=== PATIENT | female | born 1975 | race Caucasian/White ===

== ENCOUNTER 2023-12-29 16:00 | Emergency (ER) | payer OTHER, SELFPAY ==
[2023-12-29 16:16] VITALS: BP 126/82; PULSE 72; RESP 17; TEMP 36.6; O2SAT 100
[2023-12-29 16:25] VITALS: BP 126/82; PULSE 72; RESP 17; TEMP 36.6; O2SAT 100
--- NOTE | 2023-12-29 16:57 | ED.URI ---
HPI - URI/Sore Throat General Chief Complaint: Upper Respiratory Infection Stated Complaint: chest pain/sob Time Seen by Provider: 12/29/23 16:30 Source: patient, RN notes reviewed and old records reviewed Mode of arrival: ambulatory Limitations: no limitations History of Present Illness HPI Narrative: 48 year old female presents to [facility] care with complaints of one month duration of not feeling well. Patient reports that she has intermittent feelings of dyspnea, has thick phlegm in back of throat, and upper chest tickles. Patient does also report some diarrhea episodes but they have resolved. Patient reports no known fevers, chills or sweats or body aches. Patient does have history of asthma and has been using inhaler as needed, no retractions noted SAO2 100% on room air no tachypnea noted. Patient reports that she has been taking Bárbara, and Nasacort for her sinus congestion and drainage, and has also used Vicks vapo rub along with her inhaler for cough/dyspnea MD elicited complaint: cough, rhinorrhea, nasal congestion and other (intermittent dyspnea) Pertinent past history: asthma Onset (ago): month(s) (1) Pain scale (0-10): 5 Description of mucous: other (white thick phlegm) Able to tolerate fluids by mouth: Yes Treatments prior to arrival: other (inhaler,vicks vapor rub,Bárbara and nasocort) Related Data Home Medications Medication Instructions Recorded Confirmed Hydrocodone 12/29/23 Xanax 12/29/23 albuterol 12/29/23 celecoxib 200 mg capsule mg 12/29/23 lamotrigine 12/29/23 Allergies Allergy/AdvReac Type Severity Reaction Status Date / Time No Known Allergies Allergy Verified 12/29/23 16:17 Review of Systems Review of Systems: CONSTITUTIONAL: Reports malaise, no chills, sweats, or fever. EYES: Denies visual changes, redness, or discharge. ENT: Reports rhinorrhea, congestion, sinus pain, no otalgia and no sore throat. CARDIOVASCULAR: Denies chest pain, palpitations, or edema. RESPIRATORY: Reports cough.? intermittent dyspnea reported GASTROINTESTINAL: Denies abdominal pain, nausea, vomiting,positive for episodes of diarrhea that have resolved SKIN: Denies rash or itching. MUSCULOSKELETAL: Denies myalgia. NEUROLOGIC: Denies headache. All systems reviewed & are unremarkable except as noted in HPI and below PMFSH Past Medical History Medical History (Updated 12/30/23 @ 21:21 by Angy Jain NP) Anxiety and depression Asthma Bladder pain syndrome Social History Social History (Updated 12/30/23 @ 21:20 by Angy Jain NP) Smoking status: Never smoker Alcohol intake: current Alcohol use details: rare Substance use type: does not use Living arrangements: with family Gender identity (if verbalized by the patient): Female Comments At time of signature, agree with nursing past medical, surgical, social and family history. There is no relevant family history pertinent to the presenting complaint Exam Narrative: GENERAL: Well-appearing, well-nourished, and in no acute distress. HEAD: Normocephalic EYES: PERRLA, conjunctivae clear ENT: Nares clear, turbinates edematous and erythematous, clear discharge, sinus pressure.. Mucous membranes moist. TM pearly winn with dull light reflex bilaterally; no tragal tenderness. Oropharynx erythematous without lesions. Tonsils not enlarged and without exudate, no drooling, no hoarseness, no trismus, uvula midline. NECK: Supple. No lymphadenopathy CHEST: Clear to auscultation, breath sounds equal. No wheezing, rhonchi, rales, or stridor. No respiratory distress, speaks in full sentences.cough thick white phlegm, SAO2 100% on room air, no tachypnea or retractions HEART: Regular rate and rhythm. No murmur heard. SKIN: Warm, dry, no rash. NEURO: Alert and oriented x3. PSYCH: Normal mood and affect Course Course Emergency Course: Patient is aware of diagnosis, understands and agrees to treatment fabiola
== END 2023-12-29 17:13 | disposition home or self-care (01) ==
PROVIDERS: Emergency Provider Registered Nurse; PCP Emergency Medicine
DX: J01.40 Acute pansinusitis, unspecified (principal); R05.1 Acute cough; J45.909 Unspecified asthma, uncomplicated
CPT/HCPCS: 99203; G0463

== ENCOUNTER → 2024-07-16 16:48 | Outpatient (REF) | payer OTHER, SELFPAY ==
--- OUTSIDE RECORDS SUMMARY | 2024-07-16 17:59 | XMS_ITS | Clinical Summary ---
Author Organization [facility] Address [address] [address] Phone Care Team Providers Care Elementary Assistant Principal Name Role Phone Sanket Imtiaz Primary Care Provider Alan Moody DO Unavailable [phone] Allergies Active Allergy Reactions Criticality Noted Date Comments Aspirin Unknown 08/09/2016 Medications Multiple Vitamin (MULTI-VITAMIN PO) Take by mouth. Active HYDROcodone-acet aminophen (NORCO) 5-325 MG Tablet as needed. 0 10/20/2016 Active phenazopyridine (PYRIDIUM) 100 MG Tablet as needed. 0 11/25/2016 Active Sertraline HCl (ZOLOFT PO)Indications:B 12 deficiency Take 50 mg by mouth. Active ALPRAZolam (XANAX PO)Indications:B 12 deficiency Take 1 mg by mouth Daily as needed. Active lamoTRIgine (LAMICTAL) 50 MG Tablet Take by mouth 2 times daily. Active simvastatin (ZOCOR) 20 MG Tablet Take 20 mg by mouth daily. Active Cyanocobalamin (B-12) 1000 MCG Capsule Take 1,000 mcg by mouth daily. 90 Cap 3 12/22/2018 Active Active Problems Problem Noted Date Diagnosed Date Dyspnea on exertion 03/06/2018 B12 deficiency 11/16/2016 Family History Medical History Relation Name Comments Cancer Maternal Aunt Cancer Maternal Grandmother Cancer Mother Cancer Paternal Grandmother Relation Name Status Comments Maternal Aunt Maternal Grandmother Mother Paternal Grandmother Social History Tobacco Use Types Packs/Day Years Used Date Smoking Tobacco: Former Cigarettes 0.1 10 0 10/26/2006 - 10/26/2016 Smokeless Tobacco: Never Alcohol Use Standard Drinks/Week Comments Yes 0 (1 standard drink = 0.6 oz pur e alcohol) 2x monthly PHQ-2 Answer Date Recorded PHQ-2 Score 0 12/08/2018 Comments No Sex and Gender Information Value Date Recorded Sex Assigned at Not on file Legal Sex Female 8:54 PM CDT Gender Identity Not on file Sexual Orientation Not on file Last Filed Vital Signs Vital Sign Reading Time Taken Comments Blood Pressure 122/80 12/22/2018 11:34 AM CDT Pulse 90 12/22/2018 11:34 AM CDT Temperature 36.6 C (97.8 F) 12/22/2018 11:34 AM CDT Respiratory Rate 14 12/22/2018 11:34 AM CDT Oxygen Saturation 98% 12/22/2018 11:34 AM CDT Inhaled Oxygen Concentration - - Weight 79.1 kg (174 lb 6.4 oz) 12/22/2018 11:34 AM CDT Height 165.1 cm (5' 5 ) 12/22/2018 11:34 AM CDT Body Mass Index 29.02 12/22/2018 11:34 AM CDT Plan of Treatment Health Maintenance Due Date Last Done Comments Hepatitis C Virus (HCV) Screening 1973 TdaP Immunization 1973 Hepatitis B Immunization (1 of 3 - 19+ 3-dose series) 01/21/1992 Pap Smear 1994 Cervical Cancer Screening (CCS) 2003 HPV/Cotest 2003 Colonoscopy 2018 Colorectal Cancer Screening 06/02/2018 Cologuard 2023 Immunochemical Fecal Occult Blood 2023 06/01/2018, 03/17/2018 Pneumococcal Immunization (50+ years) (1 of 1 - PCV) 2023 Zoster Immunization (1 of 2) 2023 Influenza Immunization (#1) 2023 SARS-COV-2 Immunization (1 - season) 2023 Mammogram 11/18/2024 11/19/2023, 11/2022, 05/01/2020, Additional history exists Respiratory Syncytial Virus (RSV) Immunization (Adult) (1 - 1-dose 75+ series) 01/21/2048 Discussion re Starting/Frequency of Mammograms Discontinued 11/19/2023, 05/06/2022, 05/01/2020, Additional history exists Meningococcal Immunization (ACWY) Aged Out No longer eligible based on patient's age to complete this topic Rotavirus Immunization Aged Out No lo nger eligible based on patient's age to complete this topic Procedures Procedure Name Priority Date/Time Associated Diagnosis Comments STOOL, OCCULT BLOOD, SCREEN Routine 06/01/2018 B12 deficiency Dyspnea on exertion from Last 3 Months or Most Recently Relevant to Health Maintenance Results * STOOL, OCCULT BLOOD, SCREEN FOR CA (06/01/2018) Stool specimen (specimen) STOOL SPECIMEN / Unknown us Alan Moody DO URINE ORDERABLES Final Result [facility] [address] [place] [address], from Last 3 Months or Most Recently Relevant to Health Maintenance Insurance MEDICAID [place] [place] Care Teams Elementary Assistant Principal Relationship Specialty Start Date End Date Imtiaz Coles [address] [place] [address] PCP - General Family Medicine 08/09/16 Alan Moody DO [address] [place] [address] Consulting Physician Oncology 06/12/18
--- OUTSIDE RECORDS SUMMARY | 2024-07-16 17:59 | XMS_ITS | Clinical Summary ---
Author Organization [facility] Address [address] [place] [address] Care Team Providers Care Bulk Intake Worker Name Role Phone Imtiaz Coles MD Primary Care Provider [phone] Allergies Active Allergy Reactions Criticality Noted Date Comments Aspirin Other (See comments) Reaction: Unknown childhood, , , Reaction: UNKNOWN CHILDHOOD, Medications HYDROcodone-alex taminophen (NORCO) 5-325 mg per tabletIndicatio ns:Pain Take 1 tablet by mouth every 4 (four) hours as needed for pain 12 tablet 0 Active lamoTRIgine (LaMICtal) 100 mg tablet Take 25 mg by mouth 2 (two) times a day Active rosuvastatin (CRESTOR) 5 mg tablet Take 1 tablet (5 mg total) by mouth daily Active sertraline (ZOLOFT) 25 mg tablet Take 1 tablet (25 mg total) by mouth daily Active cyclobenzaprine (FLEXERIL) 10 mg tablet Take 1 tablet (10 mg total) by mouth 3 (three) times a day as needed for muscle spasms 12 tablet 1 Active Additional Information Patient not taking.Reported on 01/23/2024 Active Problems No known active problems Surgical History Surgery Date Site/Laterality Comments OTHER SURGICAL HISTORY Tubal ligation 2006 OTHER SURGICAL HISTORY 03/28/2011 - 03/27/2012 Bilateral carpal tunnel syndrome: Right carpal tunnel release Medical History Medical History Date Comments Hx Other Medical Bilateral carpa l tunnel syndrome Interstitial cystitis Family History Medical History Relation Name Comments Breast cancer Mother Cancer, breast ; Cause of : Cancer, breast Ovarian cancer Mother's Sister Hypertension Other 1 grandmother Hypertension; Cancer Other 3 Aunt Cancer; Arthritis Other 4 Grandmother Arthritis; Cancer Other 4 Grandmother Cancer; Relation Name Status Comments Mother (Age 53) Mother's Sister Other 1 grandmother Alive Other 2 Grandmother Alive Other 3 Aunt Alive Other 4 Grandmother Alive Social History Tobacco Use Types Packs/Day Years Used Date Smoking Tobacco: Former Alcohol Use Standard Drinks/Week Comments Not Currently 0 (1 standard drink = 0.6 oz pur e alcohol) Comments No Sex and Gender Information Value Date Recorded Sex Assigned at Not on file 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 Gender Identity Not on file Sexual Orientation Not on file Obstetrics History Para Term AB IAB SAB Ectopic Multiple Livin g Live Births 5 3 3 Date Outcome GA Total Labor Labor/2nd/3rd Weight Sex Type Anes PTL Linda A1 A5 Name Clin Term Term Term Last Filed Vital Signs Vital Sign Reading Time Taken Comments Blood Pressure 118/80 01/23/2024 5:00 PM CDT Pulse 89 01/23/2024 5:00 PM CDT Temperature 36.3 C (97.4 F) 01/23/2024 5:00 PM CDT Respiratory Rate 16 01/23/2024 5:00 PM CDT Oxygen Saturation 98% 01/23/2024 5:00 PM CDT Inhaled Oxygen Concentration - - Weight 85.3 kg (188 lb) 01/23/2024 5:00 PM CDT Height 165.1 cm (5' 5 ) 01/23/2024 5:00 PM CDT Body Mass Index 31.28 01/23/2024 5:00 PM CDT Plan of Treatment Health Maintenance Due Date Last Done Comments Cervical Cancer Screening 1973 Colon Cancer Screening-Colonoscopy 1973 Depression Screening 1973 Hepatitis C Screening 1973 DTaP/Tdap/Td Vaccine (1 - Tdap) 01/21/1984 Hepatitis B Screening 1991 Regular Well Visit/Exam 18-64 1991 Zoster Vaccine (1 of 2) 2023 Influenza Vaccine (#1) 2023 02/20/2014 Breast Cancer Screening-Mammogram 11/18/2024 11/19/2023, 05/06/2022, 05/01/2020, Additional history exists Pneumococcal vaccine <65 Aged Out No longer eligible based on patient's age to complete this topic Procedures Procedure Name Priority Date/Time Associated Diagnosis Comments SCREENING MAMMOGRAM BILATERAL W SURJIT Schedule Routine, Read Routine (OP Routine) 11/19/2023 9:15 AM CDT Screening mammogram, encounter for from Last 3 Months or Most Recently Relevant to Health Maintenance Results * Screening Mammogram Bilateral W Surjit (11/19/2023 9:15 AM CDT) Anatomical Region Laterality Modality Breast Bilateral Mammography 11/21/2023 8:09 AM CDT Impressions 11/21/2023 8:09 AM CDT There is no mammographic evidence of malignancy. A 1 year screening mammogram is recommended. BI-RADS: 1 - Negative. The patient has been or will be contacted. The patient will be entered into a reminder system with a target due date of 1 year for her next mammogram. Electronically signed by: Rosa Jo M.D. Narrative 11/21/2023 8:09 AM CDT EXAMINATION: SCREENING MAMMOGRAM BILATERAL W SURJIT ORDERING HEALTHCARE PROVIDER: SELF SCREENING MAMMOGRAM HISTORY: Routine screening mammography. COMPARISON: 05/06/2022, 05/01/2020, 07/03/2018 TECHNIQUE: CC and MLO views of the bilateral breasts were obtained with digital technique using breast tomosynthesis with C view. Computer aided detection was utilized. FINDINGS: DENSITY: There are scattered fibroglandular elements in the bilateral breasts. BREASTS: There are no suspicious masses, suspicious calcifications, or other suspicious findings in either breast. There has been no suspicious interval change. us Self Screening Mammogram IMG MAMMO PROCEDURES Fi nal Result from Last 3 Months or Most Recently Relevant to Health Maintenance Insurance [facility] IDPA [facility] [employer] Care Teams Bulk Intake Worker Relationship Specialty Start Date End Date Imtiaz Coles MD PCP - General 01/08/10
--- OUTSIDE RECORDS SUMMARY | 2024-07-16 17:59 | XMS_ITS | Continuity of Care Document ---
Author Organization [facility] Address [address] [place] [address] [place] [address] Phone Care Team Providers Care [employer] Worker Name Role Phone Imtiaz Coles MD Unavailable Unavailable Allergies, Adverse Reactions, Alerts Substance Reaction Status Criticality No Known Allergies Active No Inform ation Medications Medication Instructions Dosage Effective Dates (start - stop) Status Comments hydrocodone 7.5 mg-acetaminophen 325 mg tablet take 1 tablet by oral route 2 times every day as needed for pain as needed 1 tablet - Active PRN for pain, avoid driving or operate machines Xanax 0.5 mg tablet take 1 tablet by oral route 2 times every day as needed 0.5 MG - Active PRN for anxiety, avoid driving or operate machines Zetia 10 mg tablet take 1 tablet by oral route every day 10 MG - Active naloxone 0.4 mg/mL injection solution inject 0.4 milliliter by intravenous route over once, may repeat at 2 to 3 minute intervals as needed as needed 0.4 MG - Active PRN for OD Zoloft 50 mg tablet take 1 tablet by oral route every day 50 MG - Active Procedures Procedure Date OFFICE/OUTPATIENT VISIT, EST OFFICE/OUTPATIENT VISIT, EST OFFICE/OUTPATIENT VISIT, EST OFFICE/OUTPATIENT VISIT, EST OFFICE/OUTPATIENT VISIT, EST OFFICE/OUTPATIENT VISIT, EST OFFICE/OUTPATIENT VISIT, EST OFFICE/OUTPATIENT VISIT, EST OFFICE/OUTPATIENT VISIT, EST OFFICE/OUTPATIENT VISIT, EST OFFICE/OUTPATIENT VISIT, EST OFFICE/OUTPATIENT VISIT, EST OFFICE/OUTPATIENT VISIT, EST OFFICE/OUTPATIENT VISIT, EST OFFICE/OUTPATIENT VISIT, EST PREV VISIT, EST, AGE 40-64 OFFICE/OUTPATIENT VISIT, EST PREV VISIT, EST, AGE 40-64 OFFICE/OUTPATIENT VISIT, EST OFFICE/OUTPATIENT VISIT, EST OFFICE/OUTPATIENT VISIT, EST PREV VISIT, EST, AGE 40-64 OFFICE/OUTPATIENT VISIT, EST OFFICE/OUTPATIENT VISIT, EST OFFICE/OUTPATIENT VISIT, EST OFFICE/OUTPATIENT VISIT, EST PREV VISIT, EST, AGE 40-64 OFFICE/OUTPATIENT VISIT, EST OFFICE/OUTPATIENT VISIT, EST OFFICE/OUTPATIENT VISIT, EST PREV VISIT, EST, AGE 40-64 OFFICE/OUTPATIENT VISIT, EST OFFICE/OUTPATIENT VISIT, EST PREV VISIT, EST, AGE 40-64 OFFICE/OUTPATIENT VISIT, EST OFFICE/OUTPATIENT VISIT, EST OFFICE/OUTPATIENT VISIT, EST OFFICE/OUTPATIENT VISIT, EST PREV VISIT, EST, AGE 40-64 OFFICE/OUTPATIENT VISIT, EST OFFICE/OUTPATIENT VISIT, EST OFFICE/OUTPATIENT VISIT, EST OFFICE/OUTPATIENT VISIT, EST PREV VISIT, EST, AGE 40-64 OFFICE/OUTPATIENT VISIT, EST OFFICE/OUTPATIENT VISIT, EST OFFICE/OUTPATIENT VISIT, EST PREV VISIT, EST, AGE 40-64 OFFICE/OUTPATIENT VISIT, EST OFFICE/OUTPATIENT VISIT, EST OFFICE/OUTPATIENT VISIT, EST OFFICE/OUTPATIENT VISIT, EST OFFICE/OUTPATIENT VISIT, EST OFFICE/OUTPATIENT VISIT, EST OFFICE/OUTPATIENT VISIT, EST OFFICE/OUTPATIENT VISIT, EST PREV VISIT, EST, AGE 40-64 OFFICE/OUTPATIENT VISIT, EST OFFICE/OUTPATIENT VISIT, EST OFFICE/OUTPATIENT VISIT, EST OFFICE/OUTPATIENT VISIT, EST OFFICE/OUTPATIENT VISIT, EST Advance Directives Directive Yes / No Effective Date File Name No Information Encounters Encounter Description Practice Location Reason(s) For Visit Diagnoses Date Provider Providers Copied on Encounter OFFICE/OUTPA TIENT VISIT, EST [facility], [address] [place] [address], [place] tel:[phone] [facility] pain (chief complaint)H LP (chief complaint)s tomach (chief complaint) Mixed hyperlipidemiaPain in left shoulderChronic pain syndromeNevus, non-neoplasticAcut e gastritis without bleeding 5 Sanket Kitchen. [address], [facility] [place] [address] , [place]. tel:[phone] OFFICE/OUTPA TIENT VISIT, [facility], [place], [address] [place], [address], [place] tel:[phone] [facility] sick (chief complaint) GastroenteritisOcc ult blood in stool 5 Sanket Kitchen. [address], [place], [place], [address] , [place]. tel:[phone] OFFICE/OUTPA TIENT VISIT, [facility], [place], [address] [place], [address], [place] tel:[phone] [facility] HLP (chief complaint)a nemia1 (chief complaint)I C (chief complaint)n evus1 (chief complaint)p ain (chief complaint)a nxiety1 (chief complaint) Nevus, non-neoplasticAnem iaGeneralized Anxiety DisorderPain in left shoulderMixed hyperlipidemiaInte rstitial cystitis (chronic) without hematuria 5 Sanket Kitchen. [address], [place], [place], [address] , [place]. tel:[phone] OFFICE/OUTPA TIENT VISIT, [facility] [place], [address] [place], [address], [place] tel:[phone] [facility] pain (chief complaint)a nxiety1 (chief complaint)s houlder pai1 (chief complaint)H LP (chief complaint) Pain in left shoulderChronic pain syndromeGeneralize d Anxiety DisorderMixed hyperlipidemiaAnem ia Mar- 5 Sanket Kitchen. [address], [address], [place], [place], [address] , [place]. tel:[phone] OFFICE/OUTPA TIENT VISIT, [facility] [place], [address] [place], [address], [place] tel:[phone] [facility] pain (chief complaint)a nemia1 (chief complaint)H LP (chief complaint)a nxiety1 (chief complaint) Chronic pain syndromeMixed hyperlipidemiaAnem iaGeneralized Anxiety DisorderPain in left hand 5 Sanket Kitchen. [address], [place], [place], [address] , [place]. tel:[phone] OFFICE/OUTPA TIENT VISIT, [facility], [place], [address] [place], [address], [place] tel:[phone] [facility] pain (chief complaint)a nxiety1 (chief complaint) Chronic pain syndromeGeneralize d anxiety disorder 4 Sanket Kitchen. [address], [place], [place], [address] , [place]. [phone] OFFICE/OUTPA TIENT VISIT, [facility], [place], [address] [place], [address], [place] tel:[phone] [facility] pain (chief complaint)s houlder pain1 (chief complaint) Chronic pain syndromePain in left shoulder 4 Sanket Kitchen. [address], [address], [place], [place], [address] , [place]. tel:[phone] OFFICE/OUTPA TIENT VISIT, [facility], [place], [address], [place], [place], [address], [place] tel:[phone] [facility] anxiety1 (chief complaint)p ain (chief complaint)s houlder pain1 (chief complaint)H LP (chief complaint) MyalgiaChronic pain syndromeGeneralize d Anxiety DisorderMixed hyperlipidemiaPain in left shoulder 4 Sanket Kitchen. [address], [address], [place], [place], [address] , [place]. [phone] OFFICE/OUTPA TIENT VISIT, [facility], [place], [address] [place], [address], [place] tel:[phone] [facility] pain (chief complaint)a nxiety1 (chief complaint)H LP (chief complaint) Chronic pain syndromeGeneralize d Anxiety DisorderMixed hyperlipidemiaMyal azam 4 Sanket Kitchen. [address], [address], [place], [place], [address] , [place]. [phone] OFFICE/OUTPA TIENT VISIT, [facility] [place], [address] [place], [address], [place] tel:[phone] [facility] HLP (chief complaint)a nemia1 (chief complaint)p ain1 (chief complaint) Chronic pain syndromeMixed hyperlipidemiaAnem iaOther specified disorder of bone density 4 Sanket Kitchen. [address], [place], [place], [address] , [place]. tel:[phone] OFFICE/OUTPA TIENT VISIT, [facility], [place], [address], [place], [place], [address], [place] tel:[phone] [facility] pain (chief complaint)a nxiety1 (chief complaint)H LP (chief complaint)c ramp1 (chief complaint) Mixed hyperlipidemiaChro arthur pain syndromeGeneralize d Anxiety DisorderCramp and spasmEncntr screen mammogram for malignant neoplasm of breast 4 Sanket Martin [address], [place], [place], [address] , [place]. tel:[phone] OFFICE/OUTPA TIENT VISIT, [facility], [place], [address], [place], [place], [address], [place] tel:[phone] [facility] pain (chief complaint)a nxiety1 (chief complaint)H LP (chief complaint) Generalized anxiety disorderMixed hyperlipidemiaChro arthur pain syndrome 4 Sanket Martin [address], [place], [place], [address] , [place]. tel:[phone] OFFICE/OUTPA TIENT VISIT, [facility] [place], [address] [place], [address], [place] tel:[phone] [facility] HLP (chief complaint)b ack pain1 (chief complaint) Mixed hyperlipidemiaChro arthur pain syndrome 4 Sanket Martin [address], [address], [place], [place], [address] , [place]. tel:[phone] OFFICE/OUTPA TIENT VISIT, [facility] [place], [address] [place], [address], [place] tel:[phone] [facility] HLP (chief complaint)a nxieyt1 (chief complaint)b ack pain1 (chief complaint)H TN (chief complaint) Chronic pain syndromeGeneralize d anxiety disorderMixed hyperlipidemiaEsse ntial (primary) hypertension 4 Sanket Martin [address], [address], [place], [place], [address] , [place]. tel:[phone] OFFICE/OUTPA TIENT VISIT, [facility] [place], [address] [place], [address], [place] tel:[phone] [facility] anxiety1 (chief complaint)p ain (chief complaint)H LP (chief complaint) Generalized Anxiety DisorderMixed hyperlipidemiaChro arthur pain syndromeChange in bowel habit 3 Sanket Martin [address], [address], [place], [place], [address] , [place]. tel:[phone] PREV VISIT, EST, AGE 40-64 [facility], [address], [place], [place], [address], [place] tel:[phone] [facility] physical (chief complaint) Encounter for general adult medical examination without abnormal findings 3 Sanket Kitchen. [address], [address], [place], [place], [address] , [place]. tel:[phone] OFFICE/OUTPA TIENT VISIT, EST [facility], [address], [place], [place], [address], [place] tel:[phone] [facility] anxiety1 (chief complaint)b ack pain1 (chief complaint)H LP (chief complaint) Mixed hyperlipidemiaGene ralized Anxiety DisorderChronic pain syndrome 3 Sanket Martin [address], [address], [place], [place], [address] , [place]. tel:[phone] PREV VISIT, EST, AGE 40-64 [facility], [address], [place], [place], [address], [place] tel:[phone] [facility] physical (chief complaint) Encounter for general adult medical exam w abnormal findingsChronic pain syndromeGeneralize d anxiety disorderMixed hyperlipidemia 3 Sanket Kitchen. [address], [address], [place], [place], [address] , [place]. tel:[phone] [facility], [address], [place], [place], [address], [place] tel:[phone] [facility] No Information 2 Sanket Kitchen. [address], [address], [place], [place], [address] , [place]. tel:[phone] OFFICE/OUTPA TIENT VISIT, EST [facility], [address], [place], [place], [address], [place] tel:[phone] [facility] anxiety1 (chief complaint)H LP (chief complaint)b ack pain1 (chief complaint)C OVID (chief complaint) Chronic pain syndromeGeneralize d Anxiety DisorderMixed hyperlipidemiaVira l infection 2 Coles Imtiaz. [address], [address], [place], [place], [address] , [place]. tel:[phone] OFFICE/OUTPA TIENT VISIT, [facility] [place], [address], [place], [place], [address], [place] tel:[phone] [facility] HLP (chief complaint)a nemia1 (chief complaint)a nxiety1 (chief complaint)h ematuria1 (chief complaint)b ack pain1 (chief complaint) Abnormal weight gainHyperlipidemia HematuriaAnemiaChr onic pain syndrome 2 Sanket Kitchen. [address], [address], [place], [place], [address] , [place]. tel:[phone] PREV VISIT, EST, AGE 40-64 [facility], [address] [place], [address], [place] tel:[phone] [facility] Physical (chief complaint) Encounter for general adult medical exam w abnormal findingsOther spondylosis, lumbar regionHyperlipidem iaAnemiaGeneralize d Anxiety DisorderInterstiti al cystitis (chronic) with hematuria 2 Sanket Kitchen. [address], [address], [place], [place], [address] , [place]. tel:[phone] OFFICE/OUTPA TIENT VISIT, EST [facility], [address] [place], [address], [place] tel:[phone] [facility] pain (chief complaint)H LP (chief complaint)a nxiety1 (chief complaint)I C (chief complaint) Generalized Anxiety DisorderHyperlipid emiaChronic pain syndromeInterstiti al cystitis (chronic) with hematuria 1 Coles Imtiaz. [address], [address], [place], [place], [address] , [place]. tel:[phone] OFFICE/OUTPA TIENT VISIT, EST [facility], [address], [place], [place], [address], [place] tel:[phone] [facility] pain (chief complaint)a nxiety1 (chief complaint)c ystocele1 (chief complaint) Chronic pain syndromeGeneralize d Anxiety DisorderCystocele 1 Coles Imtiaz. [address], [address], [place], [place], [address] , [place]. tel:[phone] OFFICE/OUTPA TIENT VISIT, EST [facility], [address], [place], [place], [address], [place] tel:[phone] [facility] anemia1 (chief complaint)H LP (chief complaint)p ain (chief complaint)a nxiety1 (chief complaint) HyperlipidemiaGene ralized Anxiety DisorderChronic pain syndromeAnemia 1 Coles Imtiaz. [address], [place], [place], [address] , [place]. tel:[phone] PREV VISIT, EST, AGE 40-64 [facility], [address], [place], [place], [address], [place] tel:[phone] [facility] physical (chief complaint) Encounter for general adult medical exam w abnormal findingsInterstiti al cystitis (chronic) with hematuriaChronic pain syndromeGeneralize d Anxiety DisorderHyperlipid emia 0 Coles Imtiaz. [address], [address], [place], [place], [address] , [place]. tel:[phone] OFFICE/OUTPA TIENT VISIT, EST [facility], [address], [place], [place], [address], [place] tel:[phone] [facility] HLP (chief complaint)h ematuria1 (chief complaint)p ain1 (chief complaint)a nxiety1 (chief complaint) HyperlipidemiaHema turiaChronic pain syndromeGeneralize d Anxiety Disorder Sep-3 - 0 Sanket Kitchen. [address], [address], [place], [place], [address] , [place]. tel:[phone] OFFICE/OUTPA TIENT VISIT, EST [facility], [address], [place], [place], [address], [place] tel:[phone] [facility] pain1 (chief complaint)a nxiety1 (chief complaint)H LP (chief complaint)f atigue1 (chief complaint) HyperlipidemiaFati gueChronic pain syndromeGeneralize d Anxiety DisorderEncounter for oth screening for malignant neoplasm of breast Jun-2 0 Sanket Martin [address], [address], [place], [place], [address] , [place]. tel:[phone] PREV VISIT, EST, AGE 40-64 [facility], [address], [place], [place], [address], [place] tel:[phone] [facility] PHysical (chief complaint) Encntr for general adult medical exam w/o abnormal findings 9 Sanket Kitchen. [address], [address], [place], [place], [address] , [place]. tel:[phone] Referring Provider: Mahi Mun[address], [place], [place], [address]. tel:[phone] OFFICE/OUTPA TIENT VISIT, EST [facility], [address], [place], [place], [address], [place] tel:[phone] [facility] HLP (chief complaint)A nemia1 (chief complaint)c hronic pain1 (chief complaint)p alpitation1 (chief complaint)s leep apnea1 (chief complaint) Chronic pain syndromeAnemiaHype rlipidemiaUmbilica l herniaPalpitations Fatigue Nov- 0 9 Sanket Martin [address], [address], [place], [place], [address] , [place]. tel:[phone] Referring Provider: Mahi Munoz [address], [place], [place], [address]. tel:[phone] OFFICE/OUTPA TIENT VISIT, EST [facility], [address], [place], [place], [address], [place] tel:[phone] [facility] anxiety1 (chief complaint)b ack pain1 (chief complaint)H LP (chief complaint)p alpitation1 (chief complaint)I C (chief complaint) Chronic pain syndromeGeneralize d Anxiety DisorderHyperlipid emiaPalpitationsAn emia 9 Sanket Kitchen. [address], [address], [place], [place], [address] , [place]. tel:[phone] PREV VISIT, EST, AGE 40-64 [facility], [address], [place], [place], [address], [place] tel:[phone] [facility] PHysical (chief complaint) Encounter for general adult medical exam w abnormal findingsHyperlipid emiaGeneralized Anxiety DisorderChronic pain syndromePalpitatio ns 9 Sanket Kitchen. [address], [address], [place], [place], [address] , [place]. tel:[phone] Referring Provider: Imtiaz Coles, [address], [place], [place], [address]. tel:[phone] OFFICE/OUTPA TIENT VISIT, EST [facility], [address], [place], [place], [address], [place] tel:[phone] [facility] HLP (chief complaint)a nemia1 (chief complaint)h eadache1 (chief complaint)b ack pain1 (chief complaint) HyperlipidemiaAnem iaChronic pain syndromeGeneralize d Anxiety DisorderMigraine 9 Sanket Kitchen. [address], [address], [place], [place], [address] , [place]. tel:[phone] OFFICE/OUTPA TIENT VISIT, EST [facility], [address], [place], [place], [address], [place] tel:[phone] [facility] chronic pain (chief complaint)a nxiety1 (chief complaint)a nemia1 (chief complaint)H LP (chief complaint)a lcohol1 (chief complaint) AnemiaHyperlipidem iaChronic pain syndromeAlcohol abuse, in remissionGeneraliz ed Anxiety Disorder 8 Sanket Martin [address], [address], [place], [place], [address] , [place]. [phone] OFFICE/OUTPA TIENT VISIT, EST [facility], [address], [place], [place], [address], [place] tel:[phone] [facility] urine retention1 (chief complaint) Cystitis, unspecified with hematuriaBody mass index (BMI) 29.0-29.9, adultPelvic painMixed incontinencePain in unspecified joint May- 8 Sanket Martin [address], [address], [place], [place], [address] , [place]. [phone] Referring Provider: Mahi Munoz [address], [place], [place], [address]. tel:[phone] PREV VISIT, EST, AGE 40-64 [facility], [address], [place], [place], [address], [place] tel:[phone] [facility] PHysical (chief complaint) Encounter for general adult medical exam w abnormal findingsPain in unspecified jointGeneralized anxiety disorderHematuria 8 Sanket Martin [address], [address], [place], [place], [address] , [place]. [phone] Referring Provider: Mahi Munoz [address], [place], [place], [address]. tel:[phone] OFFICE/OUTPA TIENT VISIT, [facility], [place], [address], [place], [place], [address], [place] tel:[phone] [facility] anemia1 (chief complaint)h ematuria1 (chief complaint)H LP (chief complaint)a nxiety1 (chief complaint)b ack pain1 (chief complaint) AnemiaHematuriaHyp erlipidemiaGeneral ized anxiety disorder 7 Sanket Kitchen. [address], [address], [place], [place], [address] , [place]. [phone] Referring Provider: Imtiaz Coles, [address], [place], [place], [address]. tel:[phone] OFFICE/OUTPA TIENT VISIT, EST [facility], [address], [place], [place], [address], [place] [phone] [facility] anxiety1 (chief complaint)b 12 and mcv (chief complaint)H LP (chief complaint)h ematuria1 (chief complaint) HematuriaHyperlipi demiaVitamin B12 deficiencyGenerali zed Anxiety Disorder Sanket Kitchen. [address], [address], [place], [place], [address] , [place]. [phone] Referring Provider: Mahi Munoz [facility], [place], [place], [address]. tel:[phone] OFFICE/OUTPA TIENT VISIT, EST [facility], [address], [place], [place], [address], [place] tel:[phone] [facility] anxiety1 (chief complaint)b ack pain1 (chief complaint)t obacco1 (chief complaint)o besity1 (chief complaint) Body mass index (BMI) 29.0-29.9, adultLow back painGeneralized anxiety disorderTobacco use 7 Sanket Kitchen. [address], [address], [place], [place], [address] , [place]. tel:[phone] Referring Provider: Mahi Munoz [address], [place], [place], [address]. tel:[phone] PREV VISIT, EST, AGE 40-64 [facility], [address], [place], [place], [address], [place] tel:[phone] [facility] PHysical (chief complaint) Encounter for general adult medical exam w abnormal findingsLow back painGeneralized anxiety disorder 6 Sanket Kitchen. [address], [address], [place], [place], [address] , [place]. tel:[phone] Referring Provider: Mahi Munoz [address], [place], [place], [address]. tel:[phone] OFFICE/OUTPA TIENT VISIT, [facility], [place], [address], [place], [place], [address], [place] [phone] [facility] back pain1 (chief complaint)a nxiety1 (chief complaint)H LP (chief complaint) Low back painGeneralized anxiety disorderHyperlipid emia 6 Sanket Kitchen. [address], [address], [place], [place], [address] , [place]. tel:[phone] Referring Provider: Mahi Munoz [address], [place], [place], [address]. tel:[phone] OFFICE/OUTPA TIENT VISIT, [facility], [place], [address], [place], [place], [address], [place] tel:[phone] [facility] back pain1 (chief complaint)a nxiety1 (chief complaint) Low back painGeneralized anxiety disorder 5 Sanket Kitchen. [address], [address], [place], [place], [address] , [place]. tel:[phone] Referring Provider: Mahi Munoz [address], [place], [place], [address]. tel:[phone] PREV VISIT, EST, AGE 40-64 [facility], [address], [place], [place], [address], [place] [phone] [facility] physical (chief complaint) Encntr for general adult medical exam w/o abnormal findings 5 Sanket Kitchen. [address], [address], [place], [place], [address] , [place]. tel:[phone] Referring Provider: Mahi Munoz [address], [place], [place], [address]. tel:[phone] OFFICE/OUTPA TIENT VISIT, [facility], [place], [address], [place], [place], [address], [place] [phone] [facility] back pain (chief complaint)H LP (chief complaint)h ematuria (chief complaint)f oot lesion (chief complaint) Dietary surveillance and counselingOther and unspecified hyperlipidemiaLumb agoHematuria 5 Sanket Kitchen. [address], [address], [place], [place], [address] , [place]. tel:[phone] Referring Provider: Mahi Munoz [address], [place], [place], [address]. tel:[phone] OFFICE/OUTPA TIENT VISIT, [facility], [place], [address], [place], [place], [address], [place] [phone] [facility] foot blisters (chief complaint)b ack pain (chief complaint)a nxiety (chief complaint) Breaking out - eruptionLumbagoGen eralized anxiety disorder 5 Saknet Kitchen. [address], [address], [place], [place], [address] , [place]. [phone] Referring Provider: Mahi Munoz [address], [place], [place], [address]. tel:[phone] OFFICE/OUTPA TIENT VISIT, [facility], [place], [address], [place], [place], [address], [place] [phone] [facility] Sick (chief complaint)b ack pain (chief complaint)a nxiety (chief complaint)H LP (chief complaint) Viral Infection, UnspecifiedGeneral ized anxiety disorderLumbagoOth er and unspecified hyperlipidemia 5 Sanket Kitchen. [address], [address], [place], [place], [address] , [place]. [phone] Referring Provider: Mahi Munoz [address], [place], [place], [address]. tel:[phone] OFFICE/OUTPA TIENT VISIT, [facility], [place], [address], [place], [place], [address], [place] tel:[phone] [facility] back pain (chief complaint)a nxiety (chief complaint) LumbagoGeneralized anxiety disorder 4 Sanket Kitchen. [address], [address], [place], [place], [address] , [place]. tel: [phone] Referring Provider: Mahi Munoz [address], [place], [place], [address]. tel:[phone] OFFICE/OUTPA TIENT VISIT, [facility], [place], [address], [place], [place], [address], [place] tel:[phone] [facility] UTI (chief complaint)b ack pain (chief complaint)a nxiety (chief complaint) Other specified types of cystitisLumbagoGen eralized anxiety disorder 4 Sanket Kitchen. [address], [address], [place], [place], [address] , [place]. tel:[phone] Referring Provider: Mahi Munoz [address], [place], [place], [address]. tel:[phone] OFFICE/OUTPA TIENT VISIT, [facility], [place], [address], [place], [place], [address], [place] tel:[phone] [facility] abdominal pain (chief complaint)A nxiety (chief complaint) Abdominal PainUrinary Tract InfectionAcute cystitisGeneralize d anxiety disorder 4 Sanket Kitchen. [address], [place], [place], [address] , [place]. tel:[phone] Referring Provider: Mahi Munoz [address], [place], [place], [address]. tel:[phone] OFFICE/OUTPA TIENT VISIT, [facility], [place], [address], [place], [place], [address], [place] tel:[phone] [facility] bladder pain (chief complaint)a bdominal pain (chief complaint)w eight loss (chief complaint) Abdominal PainAcute cystitisIntestinal infection due to clostridium difficileLoss of weight 4 Sanket Kitchen. [address], [place], [place], [address] , [place]. [phone] Referring Provider: Mahi Munoz [address], [place], [place], [address]. tel:[phone] OFFICE/OUTPA TIENT VISIT, EST [facility], [address], [place], [place], [address], [place] tel:[phone] [facility] tendonitis (chief complaint)v aginal burning (chief complaint)s inusitis (chief complaint) Acute cystitisLateral epicondylitisChron ic frontal sinusitisHypertrig lyceridemia 4 Sanket Martin [address], [address], [place], [place], [address] , [place]. [phone] Referring Provider: Mahi Munoz [address], [place], [place], [address]. tel:[phone] PREV VISIT, EST, AGE 40-64 [facility], [address] [place], [address], [place] tel:[phone] [facility] Physical (chief complaint) Routine Medical ExamDietary surveillance and counselingRoutine Medical Exam 4 Sanket Champagne [address], [address] [place], [address] , [place]. [phone] Referring Provider: Mahi Munoz [address], [place], [place], [address]. tel:[phone] OFFICE/OUTPA TIENT VISIT, EST [facility], [address], [address], [place] tel:[phone] [facility] back pain (chief complaint)a nxiety (chief complaint)s inus symptoms (acute) (chief complaint) Dietary surveillance and counselingDietary surveillance and counselingUnspecif ied sinusitis (chronic)LumbagoGe neralized anxiety disorder 0 3 Sanket Kitchen. [address], [place], [place], [address] , [place]. tel:[phone] Referring Provider: Mahi Munoz [address], [place], [place], [address]. tel:[phone] OFFICE/OUTPA TIENT VISIT, [facility], [place], [address], [place], [place], [address], [place] tel:[phone] [facility] sinus disease (chief complaint)b ack pain (chief complaint)a nxiety (chief complaint)a menorrhea (chief complaint) Dietary surveillance and counselingSinusiti s, AcuteAbsence of menstruationGenera lized anxiety disorder 3 Sanket Martin [address], [place], [place], [address] , [place]. tel:[phone] Referring Provider: Mahi Munoz [address], [place], [place], [address]. tel:[phone] OFFICE/OUTPA TIENT VISIT, [facility], [place], [address], [place], [place], [address], [place] tel:[phone] [facility] HLP (chief complaint)b ack pain (chief complaint)a nxiety (chief complaint) Dietary surveillance and counselingOther and unspecified hyperlipidemiaAbno rmal weight gainGeneralized anxiety disorder 3 Sanket Martin [address], [place], [place], [address] , [place]. tel:[phone] Referring Provider: Mahi Munoz [address], [place], [place], [address]. tel:[phone] OFFICE/OUTPA TIENT VISIT, [facility], [place], [address], [place], [place], [address], [place] tel:[phone] [facility] back pain (chief complaint)a nxiety (chief complaint)c arpal tunnel (chief complaint)H LP (chief complaint) Dietary surveillance and counselingLumbagoG eneralized anxiety disorderCarpal Tunnel SyndromeOther and unspecified hyperlipidemia 2 Sanket Kitchen. [address] [facility] [address], [place], [place], [address] , [place]. tel:[phone] Referring Provider: [facility] [place], [place], [address]. tel:[phone] OFFICE/OUTPA TIENT VISIT, EST [facility], [address], [place], [place], [address], [place] tel:[phone] [facility] HLP (chief complaint)b ack pain (chief complaint)a nxiety (chief complaint) Dietary surveillance and counselingLumbagoO ther and unspecified hyperlipidemiaGene ralized anxiety disorder 2 Sanket Kitchen. [address], [facility] A, [place], [place], [address] , [place]. tel:[phone] Referring Provider: Imtiaz Coles [place], [place], [address]. tel:[phone] Family History Family Member Type Diagnosis Age At Onset Mother Problem (finding) Cancer, breast Father Problem (finding) Unknown Disease Payers Payer name Insurance type Covered constitution party ID [facility] [id number] Social History Type Description Quantity Date Captured Comments Alcohol Use Details No Caffeine Use Details Unknown Tobacco Use Status Ex-cigarette smoker 025 Smoking Status Former smoker Sex Female Vital Signs Date / Time: Height Weight BMI Pulse Rate Blood Pressure Temperature Respiratory Rate Body Surface Area Head Circumference BMI percentile Pulse Ox Inhaled Ox 7:17 AM 65.00 in 187.00 lbs 31.1 2 kg/m eter (2) Chief Complaint And Reason For Visit From encounter dated '06/27/2024 17:40'. pain (chief complaint). Description: Pt has chronic back pain due to severe DDD Pt denies any loss of bowel or bladder control or saddle area paresthesia Pt has mild sciatica and neuropathy both legs. Pt takes norco PRN and doing ok Pt failed neurontin. 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 Pt has left shoulder pain.She was evaluated by ortho and MRI of left shoulder was denied by insurance . Pt does have chronic neck pain HLP (chief complaint). Description: Pt has HLP Pt is on zetia Pt notices slightly non bloody diarrhea with zetia. Pt unable to tolerate statin stomach (chief complaint). Description: Pt has been notices some persistent stomach upset recently.Pt denies any GERD Pt denies any nausea, vomiting, diarrhea, Pt denies any blood in stool Plan Of Treatment Date Type Action Status Goal Tobacco cessation counseling completed Goal Special diet education compl eted Goal Tobacco cessation counseling completed Goal Special diet education compl eted Goal Special diet education compl eted Goal Tobacco cessation counseling completed Goal Special diet education compl eted Goal Prescribed dietary intake co mpleted Goal Tobacco cessation counseling completed Goal Tobacco cessation counseling completed Goal Tobacco cessation counseling completed Goal Tobacco cessation counseling completed Goal Tobacco cessation counseling completed Goal Tobacco cessation counseling completed Goal Tobacco cessation counseling completed Goal Tobacco cessation counseling completed Goal Tobacco cessation counseling completed Goal Tobacco cessation counseling completed Goal Tobacco cessation counseling completed Referral Ordered: CERVICAL SPINE XRAY 7 VIEWS ordered Referral Ordered: Joanie Martin -[facility] : Plastic Surgery (related to Nevus, non-neoplastic) ordered Referral Referred To: Joanie Martin [address] [place] [address], [phone] Ordered: Referrals: [facility]opathic Phys[facility] : Plastic Surgery. Joanie Martin. Evaluate and treat ordered Referral Ordered: MRI JOINT UPR EXTREM W/O DYE Left shoulder ordered Referral Ordered: Orthopedic Surgery (related to Pain in left shoulder) ordered Referral Ordered: Referrals: Orthopedic Surgery. Evaluate and treat ordered Referral Ordered: Urology (related to Cystocele) ordered Referral Ordered: Pain Medicine (related to Chronic pain syndrome) ordered Referral Ordered: SLEEP STUDY, ATTENDED ordered Referral Ordered: Florentino Mejia -[facility] : Internal Medicine : Cardiovascular Disease (related to Palpitations) ordered Referral Ordered: CHEST X-RAY PA/LAT TWO-VIEWS ordered Referral Referred To: Florentino Mejia [address] [place], [place] [id number] Ordered: Referrals: [facility] Phys[facility] : Internal Medicine : Cardiovascular Disease. Florentino Mejia. Evaluate and treat ordered Referral Ordered: Trini Arias -[facility] : Urology (related to Cystitis, unspecified with hematuria) ordered Referral Referred To: Trini Arias [address] [facility]
[address] [place], [place], [address] Ordered: Referrals: [facility] : Urology. Trini Arias. Evaluate and treat ordered Referral Ordered: Hematology (related to Vitamin B12 deficiency) ordered Referral Ordered: Urology (related to Hematuria) ordered Referral Ordered: Referrals: Hematology. Evaluate and treat ordered Referral Ordered: Referrals: Urology. Evaluate and treat ordered Referral Ordered: Pain Medicine (related to Low back pain) ordered Referral Ordered: Referrals: Pain Medicine. Evaluate and treat ordered Referral Ordered: Neurosurgery (related to Low back pain) ordered Referral Ordered: Referrals: Neurosurgery. Evaluate and treat ordered Referral Ordered: MRI LUMBAR SPINE W/O DYE ordered Referral Ordered: Podiatry (related to Breaking out - eruption) ordered Referral Ordered: Referrals: Podiatry. Evaluate and treat ordered Referral Ordered: LUMBAR XRAY AP AND LAT ONLY ordered Referral Ordered: Physical Therapy (related to Lumbago) ordered Referral Referred To: Physical Therapy Ordered: Referral: Physical Therapy. ordered Referral Ordered: MAMMOGRAM, SCREENING ordered Referral Ordered: CT ABDOMEN W/O & W/DYE ordered Referral Ordered: COLONOSCOPY AND BIOPSY ordered Referral Ordered: CT MAXILLOFACIAL W/O DYE (SINUSES) SF ordered History Of Present Illness Encounter Date Complaint History Of Prese nt Illness pain Pt has chronic b ack pain due to severe DDD Pt denies any loss of bowel or bladder control or saddle area paresthesia Pt has mild sciatica and neuropathy both legs. Pt takes norco PRN and doing ok Pt failed neurontin. 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 Pt has left shoulder pain. She was evaluated by ortho and MRI of left shoulder was denied by insurance . Pt does have chronic neck pain HLP Pt has HLP Pt is on zetia Pt notices slightly non bloody diarrhea with zetia. Pt unable to tolerate statin stomach Pt has been noti fernanda some persistent stomach upset recently. Pt denies any GERD Pt denies any nausea, vomiting, diarrhea, Pt denies any blood in stool sick Pt c/o acute ons et of nausea, abdominal crampy pain, some diarrhea with dark color, overall malaise for 3-4 days. Pt denies any fever, sore throat, vomiting, joint pain, cough, sob, etc. Pt has been using some pepto bismol from OTC to try to settle her stomach. Pt states that her nausea is worse with food intake pain Pt has chronic b ack pain due to severe DDD Pt denies any loss of bowel or bladder control or saddle area paresthesia Pt has mild sciatica and neuropathy both legs. Pt takes norco PRN and doing ok Pt failed neurontin. 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 Pt has left shoulder pain. Pt has not done MRI yet HLP Pt has persisten t HLP. Pt unable to tolerate statins. anemia1 Pt has borderlin e anemia Her iron is ok Pt denies any bleeding IC pt has chronic I C and she has frequent dysuria, urgency Pt has group B strep her urine. nevus1 pt notices a sca ly spot on forehead for several months with recurrent scab and irritation. Pt denies any bleeding anxiety1 Pt has chronic a nxiety and depression Pt takes zoloft and xanax PRn and doing ok .Pt denies any suicidal or homicidal thought Pt denies any crying spells pain Pt has chronic b ack pain due to severe DDD Pt denies any loss of bowel or bladder control or saddle area paresthesia Pt has mild sciatica and neuropathy both legs. Pt takes norco PRN and doing ok Pt failed neurontin. 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 Pt c/o persistent left shoulder pain, especially with any movement Pt saw ortho and started physical therapy but has not helped the left shoulder pain. Pt was told that left shoulder pain is from her neck and ortho does not treat neck issue HLP Pt has HLP and a nemia Pt could not tolerate statin Pt just had lab done today HLP Pt has HLP Pt un able to tolerate statin Pt has been working on diet Pt has not done repeat lab yet pain Pt has chronic b ack pain due to severe DDD Pt denies any loss of bowel or bladder control or saddle area paresthesia Pt has mild sciatica and neuropathy both legs. Pt takes norco PRN and doing ok Pt failed neurontin. 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 Pt denies any heavy period Pt has not done lab yet. Pt c/o mild fatigue Pt denies any sob anxiety1 Pt has chronic a nxiety with depression Pt takes zoloft and xanax PRN and doing ok Pt denies any suicidal or homicidal thought pain Pt has chronic b ack pain due to severe DDD Pt denies any loss of bowel or bladder control or saddle area paresthesia Pt has mild sciatica and neuropathy both legs. Pt takes norco PRN and doing ok Pt failed neurontin. 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 Pt also has left shoulder pain Pt is seeing ortho and she will start PT soon pain Pt has chronic b ack pain due to severe DDD Pt denies any loss of bowel or bladder control or saddle area paresthesia Pt has mild sciatica and neuropathy both legs. Pt takes norco PRN and doing ok Pt failed neurontin. 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 Pt also notices diffuse muscle pain all over body since last months. Pt stopped crestor last month and her myalgia resolved . shoulder pain1 Pt has left shou lder pain Pt denies any injury Pt has lourdes with ortho in one week anxiety1 Pt has chronic a nxiety and depression Pt takes zoloft and xanax PRN and doing ok Pt denies any suicidal or homicidal thought Pt denies any crying spells shoulder pain1 Pt c/o persisten t left shoulder pain, especially with movement for several months Pt denies any injury Pt denies any redness, warmth or swelling Pt denies any neck pain or radiculopathy HLP Pt has HLP Pt un able to tolerate statin. pain Pt has chronic b ack pain due to severe DDD Pt denies any loss of bowel or bladder control or saddle area paresthesia Pt has mild sciatica and neuropathy both legs. Pt takes norco PRN and doing ok Pt failed neurontin. 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 Pt also notices diffuse muscle pain all over body since last months. Pt stopped crestor last month and her myalgia resolved . pain Pt has chronic b ack pain due to severe DDD Pt denies any loss of bowel or bladder control or saddle area paresthesia Pt has mild sciatica and neuropathy both legs. Pt takes norco PRN and doing ok Pt failed neurontin. 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 Pt also notices diffuse muscle pain all over body since last months. anxiety1 Pt has chronic a nxiety and depression Pt takes zoloft and xanax PRN and doing ok Pt denies any suicidal or homicidal thought Pt denies any crying spells HLP Pt has HLP Pt st arted crestor 40 mg last month but she notices diffuse muscle pain. HLP Pt has HLP Pt ta [place] crestor. her lipid profile is still high anemia1 Pt has mild anem ia Pt denies any blood loss. pt still has period. pt does c/o mild fatigue pain1 Pt has chronic b ack pain due to severe DDD Pt denies any loss of bowel or bladder control or saddle area paresthesia Pt has mild sciatica and neuropathy both legs. Pt takes norco PRN and doing ok Pt failed neurontin. Pt cleans house every day pain Pt has chronic b ack pain due to severe DDD Pt denies any loss of bowel or bladder control or saddle area paresthesia Pt has mild sciatica and neuropathy both legs. Pt takes norco PRN and doing ok Pt failed neurontin. Pt cleans house every day anxiety1 Pt has chronic a nxiety and depression Pt takes zoloft and xanax PRn and doing ok Pt denies any suicidal or homicidal thought pt denies any crying spells. HLP Pt has HLP, pt t duran crestor Pt denies any myalgia Pt has not done lab yet . cramp1 Pt c/o frequent bilateral lower extremity cramp for several weeks Pt denies any injury Pt denies any claudication. Pt notices bilateral ankle and feet swelling, worse at night and better in the morning. Pt states that cramp is random and throughout the day pain Pt has chronic b ack pain due to severe DDD Pt denies any loss of bowel or bladder control or saddle area paresthesia Pt has mild sciatica and neuropathy both legs. Pt takes norco PRN and doing ok Pt failed neurontin. Pt cleans house every day anxiety1 Pt has chronic a nxiety and depression Pt takes zoloft and xanax PRn and doing ok Pt denies any suicidal or homicidal thought pt denies any crying spells. HLP Pt has HLP Pt ta kes crestor 20 mg daily Pt denies any myalgia HLP Pt has HLP Pt to lerating Crestor ok Pt denies any myalgia back pain1 Pt has chronic b ack pain due to severe DDD Pt denies any loss of bowel or bladder control or saddle area paresthesia Pt has mild sciatica and neuropathy both legs. Pt takes norco PRN and doing ok Pt failed neurontin. Pt cleans house every day HLP Pt has HLP Pt garces s been noncompliant with crestor and she has not been taking crestor daily anxieyt1 Pt has chronic a nxiety and depression Pt tried Cymbalta last month but she did not like cymbalta and she went back to zoloft. Pt also takes xanax PRn and doing ok Pt denies any suicidal or homicidal thought .pt denies any crying spells .pt sees psychiatrist . Pt states cymbalta made her very nauseated. HTN Pt has mild bord paz HTn today. Pt denies any chest pain or headache. back pain1 Pt has chronic b ack pain due to severe DDD Pt denies any loss of bowel or bladder control or saddle area paresthesia Pt has mild sciatica and neuropathy both legs. Pt takes norco PRN and doing ok Pt failed neurontin. 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 pain Pt has chronic b ack pain due to severe DDD Pt denies any loss of bowel or bladder control or saddle area paresthesia Pt has mild sciatica and neuropathy both legs. HLP Pt has HLP. Pt t duran phillips Pt denies any myalgia Pt still has not done lab yet physical Pt needs annual physical pt has chronic low back pain Pt denies any loss of bowel or bladder control or saddle area paresthesia Pt has DDD Pt takes norco PRN for pain and doing ok. Pt has anxiety and depression Pt takes zoloft and xanax PRN and doing ok Pt denies any suicidal or homicidal thought.. Pt has HLP Pt takes crestor Pt denies any myalgia Pt has not done lab yet. anxiety1 Pt has chronic a nxiety and depression Pt takes zoloft and xanax PRN and doing ok Pt sees psychiatrist Pt denies any suicidal or homicidal thought Pt denies any crying spells back pain1 pt has chronic l ow back pain Pt denies any loss of bowel or bladder control or saddle area paresthesia Pt has DDD Pt takes norco PRN for pain and doing ok. HLP Pt has HLP Pt ovi phillips Pt denies any myalgia Pt has not done lab yet physical Pt needs annual physical pt has chronic low back pain Pt denies any loss of bowel or bladder control or saddle area paresthesia Pt has DDD Pt takes norco PRN for pain and doing ok. Pt has anxiety and depression Pt takes zoloft and xanax PRN and doing ok Pt denies any suicidal or homicidal thought.. Pt has HLP Pt takes crestor Pt denies any myalgia Pt has not done lab yet. anxiety1 Pt has chronic a nxiety and depression Pt takes zoloft and xanax PRn and doing ok, Pt denies any suicidal or homicidal thought. Pt denies any crying spells. Pt sees psychiatrist HLP Pt has HLP Pt ovi phillips and she denies any myalgia. back pain1 Pt has low back pain due to DDD. Pt denies any loss of bowel or bladder control or saddle area paresthesia. Pt has mild sciatica and leg numbness sometimes. Pt takes norco PRN for pain and doing ok. Pt failed neurontin COVID Pt tested positi ve for COVID two days ago and she has mild sore throat, sinus congestion, dry cough Pt denies any fever, or sob Pt is full vaccinated for COVID and also boosted. HLP Pt has HLP Pt ta kes crestor 5 mg and her lipid profile is getting worse Pt denies any myalgia anemia1 Pt has history o f anemia. Repeat lab showed normal CBC and iron. Pt denies any bleeding back pain1 Pt has low back pain due to DDD. Pt denies any loss of bowel or bladder control or saddle area paresthesia. anxiety1 Pt has chronic a nxiety and depression Pt takes xanax and zoloft and doing ok. Pt denies any suicidal or homicidal thought. Pt denies any crying spells. hematuria Pt has intersiti al cystitis and her urine is ok. Pt denies any urinary symptoms. No hematuria Physical Pt needs annual physical. Pt has chronic low back pain due to DDD pt has mild sciatica and leg numbness ,Pt denies any saddle area paresthesia Pt denies any loss of bowel or bladder control. Pt has chronic anxiety and depression Pt takes zoloft and xanax PRn and doing ok Pt denies any suicidal or homicidal thought Pt denies any crying spells Pt sees psychiatrist Pt has HLP Pt takes crestor Pt denies any myalgia. Pt does have heavy period. Pt denies any GI bleeding pain Pt has chronic l ow back pain Pt has DDD Pt has mild sciatica and leg numbness Pt takes norco PRn for pain. Pt failed neurontin Pt failed NSAID and ultram Pt failed lyrica also Pt denies any loss of bladder control. Pt has 6/10 pain daily. Pt states that her low back pain has been worse lately, pt denies any injury. Pt has appointment with pain management soon IC Pt has IC with h istory of bladder sling Pt had Ct done recently which showed cystocele vs diverticulum of bladder wall. Pt denies any pelvic pain Pt denies any UTI symptoms. Pt took elmiron but did not work Pt has chronic urinary urgency and frequency. Pt does not have any UTI o recent UA. Pt has low pelvic pain intermittently. Pt has [place] with urology soon HLP Pt has HLP ,pt t akes crestor pt denies any myalgia anxiety1 Pt has chronic a nxiety and depression Pt takes zoloft and xanax PRN and doing ok Pt denies any suicidal or homicidal thought Pt denies any crying spells. Pt sees psychiatrist pain Pt has chronic l ow back pain Pt has DDD Pt has mild sciatica and leg numbness Pt takes norco PRn for pain. Pt failed neurontin Pt failed NSAID and ultram Pt failed lyrica also Pt denies any loss of bladder control. Pt has 6/10 pain daily. Pt states that her low back pain has been worse lately, pt denies any injury anxiety1 Pt has anxiety a nd depression Pt takes zoloft and xanax PRn Pt denies any suicidal or homicidal thought Pt denies any crying spells .Pt sees psychiatrist cystocele1 Pt has IC with h istory of bladder sling Pt had Ct done recently which showed cystocele vs diverticulum of bladder wall. Pt denies any pelvic pain Pt denies any UTI symptoms. Pt took elmiron but did not work Pt has chronic urinary urgency and frequency. Pt does not have any UTI o recent UA. Pt has low pelvic pain intermittently . anemia1 Pt has chronic s table anemia Pt had negative EGD and colonoscopy Pt denies any bleeding Pt denies any fatigue HLP Pt takes crestor and tolerating it ok. Her lipid profile is normal now Her TG is borderline high Pt denies any myalgia pain Pt has chronic l ow back pain Pt has DDD Pt has mild sciatica and leg numbness Pt takes norco PRn for pain. Pt failed neurontin Pt failed NSAID and ultram Pt failed lyrica also Pt denies any loss of bladder control. Pt has 6/10 pain daily anxiety1 Pt has anxiety a nd depression Pt takes zoloft and xanax PRn Pt denies any suicidal or homicidal thought Pt denies any crying spells .Pt sees psychiatrist physical Pt needs annual physical. Pt has chronic IC. Pt denies any dysuria currently .Pt has HLP Pt tolerating crestor ok. pt denies any myalgia Pt also has chronic back pain and anxiety and depression Pt takes norco PRN. Pt also takes zoloft and xanax PRn and doing ok pt denies any suicidal or homicidal thought .Pt denies any crying spells anxiety1 Pt has anxiety a nd depression Pt takes zoloft and xanax PRn Pt denies any suicidal or homicidal thought Pt denies any crying spells .Pt sees psychiatrist HLP Pt has persisten tly HLP. Pt is noncompliant with zetia. pt states that zetia causes her to have muscle pain. Her TC and TG are high. hematuria1 Pt has hematuria , which is chronic and recurrent. Pt denies any UTI symptoms or flank pain pain1 Pt has chronic l ow back pain Pt has DDD Pt has mild sciatica and leg numbness Pt takes norco PRn for pain. Pt failed neurontin Pt failed NSAID and ultram Pt failed lyrica also Pt denies any loss of bladder control. Pt has 6/10 pain daily pain1 Pt has chronic l ow back pain Pt has DDD Pt has mild sciatica and leg numbness Pt takes norco PRn for pain Pt failed neurontin Pt failed NSAID and ultram Pt failed lyrica also Pt denies any loss of bladder control. Pt has 6/10 pain daily anxiety1 Pt has anxiety a nd depression Pt takes zoloft and xanax PRn Pt denies any suicidal or homicidal thought Pt denies any crying spells .Pt sees psychiatrist HLP Pt has HLP ,Pt t akes zetia, not daily pt missed doses frequently. Pt denies any abd pain fatigue1 Pt has chronic f atigue and she snores at night, Pt unable to afford sleep study PHysical Pt needs annual physical pt has chronic stable anemia, Pt has b12 deficiency and she gets b12 shot by hematology. Pt had negative endoscopy Pt does have IC with frequent hematuria Pt has back pain and anxiety Pt takes zoloft an xanax and norco for pain PRN. Pt has HLP, pt could not tolerate Zocor.. Pt denies any GI bleeding Pt doing ok, Pt cristy any other complaints HLP Pt has HLP. Pt s tates that she has not been taking zocor daily Pt denies any myalgia. Pt is noncompliant Anemia1 Pt has chronic a nemia. Pt does have intermittent hematuria due to IC. Pt is seeing urology, Pt failed multiple IC medication. chronic pain1 Pt has chronic l ow back pain, pt also notices some left SI joint pain as well recently Pt has been taking norco PRn but she has been taking more lately pt denies any injury, Pt denies any loss of bladder control Pt has leg numbness. 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 Patient complained of mild sciatica right leg numbness and tingling. Patient denies any loss of bowel bladder control. Patient failed NSAID and tramadol. Patient has 6 out of 10 pain daily. Patient complained of sharp pain. Patient denies any worsening pain. HLP Pt takes zocor. Pt has not done lab yet. Pt denies any myalgia palpitation1 Pt had benign EK G and she supposes to do stress echo but she never did Pt was told palpitation due to anxiety by cardiology. Pt denies any chest pain .Pt denies any exertional symptoms IC Pt has IC. Pt to abdoulaye Yadav told her he does not treat IC. 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 Patient denies any suicidal homicidal thoughts. Patient denies any crying spells. Patient takes zoloft and Xanax and doing okay. Patient noticed more motivation. Patient denies any hopelessness. PHysical Pt needs annual physical Pt has intermittent exertional chest palpitation with sob for one year. Pt denies any acute symptoms. Pt denies any resting symptoms Pt denies any diaphoresis or radiculopathy. Pt denies any nausea, Pt has chronic low back pain pt takes norco PRN for pain Pt denies any worsening pain Pt failed NSAID and ultram Pt has mild sciatica and leg numbness. Pt has chronic anxiety and depression. Pt takes zoloft and xanax and she sees psychiatrist Pt denies any suicidal or homicidal thought Pt denies any crying spells. Pt denies any other complaints HLP Pt has mild HLP Pt is not on any diet anemia1 Pt has mild bord paz anemia. Pt had benign endoscopy. Pt has intermittent hematuria. Pt is seeing hematology. Pt is getting b12 shot Pt feels well. headache1 Pt has been havi ng persistent throbbing headache with photophobia and nausea waking her from sleep almost nightly for the past 4 weeks. Pt denies any head injury. pt has migraine headache about 1-2 per month for the past several years per patient. pt does drink coffee daily. Pt states that she has been waking up at night due to headache. pt takes tylenol but sometimes does not help. pt denies any sinus issue. Pt denies any neck pain. Pt denies any neurologic issue. Pt denies any vision loss back pain1 Pt has chronic l ow back pain with mild sciatica and leg numbness. Pt failed NSAID Pt wants to cut down norco dose. pt denies any worsening pain chronic pain Pt has chronic l ow back pain pt denies any worsening pain, Pt denies any loss of bladder control Pt has DDD anxiety1 Pt has chronic a nxiety and depression Pt takes zoloft and xanax PRn and doing ok pt denies any suicidal or homicidal thought Pt denies any crying spells pt is seeing psychiatrist now and she started zoloft and feeling much better moood anemia1 pt denies any fr ank bleeding Pt has IC and she has intermittent hematuria Pt denies any GI blood loss. HLP Pt has hlp Pt is working on low fat and low carb diet alcohol1 Pt quit alcohol completely 3 months ago. Pt feels less anxious without alcohol. pt denies nay withdraw symptoms urine retention1 Pt has urinary retention recently. Pt had a bladder sling for stress incontinence Pt feels pain around pelvic area. Pt has recurrent hematuria. Pt has bladder pain .Pt told me she went to ER recently and was found to have hematuria and she was treated for UTI. Pt states that she has not felt much improvement with the sling regarding her urinary incontinence and pelvic pain. Pt does not like her current urologist. PHysical Pt needs annual physical pt has chronic low back pain. Pt denie any worsening pian pt denies any loss of bladder control. Pt denie any sciatica. Pt has chronic anxiety. Pt denie sany depression or any suicidal thought. Pt denies any cyring spells. Pt also has low B12 and she is getting b12 injections. Pt still feels tired. pt also has chronic hematuria. Pt is seeing SADDLE MECH[employer]IC and she does not have any uterine bleeding. Pt states taht she had a bladder sling recenlty which made the hematuria worse. Pt denies any UTI symptoms. Pt feels diffuse joint pain including hand and wrist, arm, leg, back, pt denies any other complaints anemia1 Pt has mild stab le anemia. pt is seeing hematology and she is getting b12 shot. Pt doing ok Pt denies any Gi or bladder blood loss hematuria1 Pt has chronic r ecurrent hematuria pt has some stress incontinence Pt is seeing urology and she supposes to do bladder surgery but insurance denied and her urology is working with her on that Pt denies any UTI symptoms HLP Pt has HLP Pt garces s been diet and execise and her lipid profile is getting better. anxiety1 Pt has chronic a nxiety pt denies any depression or any suicidal thought. Pt denies any cyring spells Pt takes xanax PRn and doing ok back pain1 Pt has chronic l ow back pain pt denies any worsening pain. pt denies any loss of bladder control. Pt has pain management appointment next week anxiety1 Pt has chronic a nxiety Pt denies any depression or any suicidal thought. Pt denies any crying spells. Pt could not tolerate wellbutrin. Pt states that she is off wellbutirn after only two weeks. pt feels ok today b12 and mcv Pt has low b12 a nd high MCV. Pt has been drinking alcohol daily for the past several years. Pt drinks wine and beer daily. Pt has mild anemia. Pt told me she had negative EGD and colonoscopy last year. Pt denies any GERD or abdominal pain. HLP Pt has high TG a nd high cholesterol. Pt drinks water but she does not eat poorly. Pt has high TG hematuria1 Pt has chornic a nd intermitent hematuria. Pt denies any UTI symptoms anxiety1 Pt has chronic a nxiety. Pt denies any depression or any suicdial thought Pt just has a very stressful life. Pt states that celexa made her very angery. Pt failed several other SSRIs in the past per pt. Pt doing ok with xanax PRN back pain1 Pt has chronic l ow back pain due to severe DDD Pt failed PT. Pt denies any loss of bladder control. Pt has mild scaitica and leg numbness but not worse. Pt has 9/10 pain daily intermittently. tobacco1 Pt smokes less t allison 1/2 PPD Pt does not want to quit. Pt denies any sob obesity1 pt is over weigh t. Pt is trying diet and exercise for weight loss PHysical Pt needs annual physical. pt has chornic anxiety and depression. Pt tried effexor but did not work Pt takes xana PRN. Pt states that effeor gave her a rage Pt denies any suicidal or homicidal thought. Pt denies any cyring spells. Pt has chornic low back pain. Pt denies any loss of jenna or bladder control. Pt has sciatica but no numbness. Pt denies any worsening pain. Pt denies any other complaints back pain1 Pt has chronic l ow back pain. Pt denies any loss of bowel or bladder control. Pt c/o right sciatica and right leg numbness sometimes. . Pt seen the neurosurgery at [facility] recently and was told no surgery necessary. Pt failed PT. Pt denies any worsening pain. Pt has 1-8/10 back pain depending on activity anxiety1 Pt has chronic a nxiety .PT feels depressed Pt denies any suicidal or homicidal thought Pt feels down and has no motivation and she has no interests to do anything. HLP Pt has history o f mild HLP Pt is on low fat and low carb diet. back pain1 Pt has chronic s evere low back pain with bilateral scaitcia down to both hips Pt denies any numnbess. Pt denies any loss of bowel or bladder control. Pt has severe spondylosis on MRI. anxiety1 Pt has chronic a nxiety Pt denies any depression or any suicidal thought. Pt takes xanax PRN Pt denies any feeling of hopelessness Pt denies any crying spells physical PT needs annual physical. PT has chronic severe low back pain. Pt has on average 9/10 pain daily. Pt c/o right sciatica and she has right leg numbness and tingling. Pt has severe degenerative disc disease on xray. Pt did PT last for over 6 weeks and she also failed NSAID for over 3 months. Pt currently takes norco for pain PRN. Pt also has chronic anxiety. Pt denie any depression or any suicidal thoutght. Pt denies any crying spells. Pt denies feeling of hopelessness. foot lesion Pt c/o peeling a nd blisters left foot. Pt tried clotrimazle but not helping. Pt denies any foot injury or any numbness back pain Additional infor mation: Pt has chronic LBP. Pt denies any loss of bowel or bladder control. Pt c/o right sciatica. HLP Pt has mildly el evated TG. on lab hematuria Pt has hematuria . Pt denies any UTI symptmos. foot blisters Pt notices a bli stes bottom of left foot and also skin peeling between 1st and 2nd toe for 4 weeks. Pt notices the blisters popped and she has itching and burning and painful. Pt went to ER and was given keflex and fluconazole. Pt was told to take diflucan one per week. Pt denies any worsening symptoms. Pt denies any fever. Pt notices itching and burnign and clear drainage back pain Additional infor mation: Pt has chornic LBP. pt denies any loss of bowel or bladder control. anxiety The patient does not present with anxious/fearful thoughts or fatigue. The patient denies any vomiting. Additional information: Pt has chornic anxity. Pt denies any depression or any suicidal thought. Instructions Date Instruction Additional Infor mation Special diet education Related t o Body mass index (BMI) 28.0-28.9, adult Increase physical activity Relat ed to Chronic pain syndrome Weight management Related to Chr onic pain syndrome Special diet education Related t o Body mass index (BMI) 27.0-27.9, adult Quit smoking Related to Chron ic pain syndrome Special diet education Related t o Body mass index (BMI) 28.0-28.9, adult Increase physical activity Relat ed to Hyperlipidemia Weight management Related to Hyp erlipidemia Special diet education Related t o Body mass index (BMI) 27.0-27.9, adult Quit smoking Related to Anemi a Prescribed dietary intake Relate d to Body mass index (BMI) 29.0-29.9, adult Quit smoking Related to Cysti tis, unspecified with hematuria Prescribed Activity and Exercise Education Related to Dietary Surveillance and Counseling Prescribed Diet Educ ation/Lifestyle Education Regarding Diet Related to Dietary Surveillance and Counseling Increase physical activity Relat ed to Encounter for general adult medical exam w abnormal findings Weight management Related to Enc ounter for general adult medical exam w abnormal findings Quit smoking Related to Encou nter for general adult medical exam w abnormal findings Weight management Related to Enc ounter for general adult medical exam w abnormal findings Prescribed Activity and Exercise Education Related to Dietary Surveillance and Counseling Prescribed Diet Educ ation/Lifestyle Education Regarding Diet Related to Dietary Surveillance and Counseling Increase physical activity Relat ed to Anemia Weight management Related to Ane megan Prescribed Activity and Exercise Education Related to Dietary Surveillance and Counseling Prescribed Diet Educ ation/Lifestyle Education Regarding Diet Related to Dietary Surveillance and Counseling Stop smoking. Related to Hyper lipidemia Follow a low sodium diet. Relate d to Hyperlipidemia Increase activity. Related to Hy perlipidemia Stop smoking. Related to Hyper lipidemia Follow a low sodium diet. Relate d to Hyperlipidemia Prescribed Activity and Exercise Education Related to Dietary Surveillance and Counseling Prescribed Diet Educ ation/Lifestyle Education Regarding Diet Related to Dietary Surveillance and Counseling Increase physical activity Relat ed to Body mass index (BMI) 29.0-29.9, adult Quit smoking Related to Body mass index (BMI) 29.0-29.9, adult Weight management Related to Bod y mass index (BMI) 29.0-29.9, adult Diet and exercise Related to Bod y mass index (BMI) 29.0-29.9, adult Prescribed Activity and Exercise Education Related to Dietary Surveillance and Counseling Prescribed Diet Educ ation/Lifestyle Education Regarding Diet Related to Dietary Surveillance and Counseling Prescribed Activity and Exercise Education Related to Dietary Surveillance and Counseling Prescribed Diet Educ ation/Lifestyle Education Regarding Diet Related to Dietary Surveillance and Counseling Prescribed Activity and Exercise Education Related to Dietary Surveillance and Counseling Prescribed Diet Educ ation/Lifestyle Education Regarding Diet Related to Dietary Surveillance and Counseling Prescribed Diet Educ ation/Lifestyle Education Regarding Diet Related to Dietary Surveillance and Counseling Prescribed Activity and Exercise Education Related to Dietary Surveillance and Counseling Prescribed Activity and Exercise Education Related to Dietary Surveillance and Counseling Prescribed Diet Educ ation/Lifestyle Education Regarding Diet Related to Dietary Surveillance and Counseling Physical activity counseling Rel ated to Dietary surveillance counseling Decrease caloric intake Related to Dietary surveillance counseling Dietary counseling Related to Di etary surveillance counseling Decrease caloric intake Related to Dietary surveillance counseling Decrease caloric intake Related to Dietary surveillance counseling Dietary counseling Related to Di etary surveillance counseling Dietary counseling Related to Di etary surveillance counseling Decrease caloric intake Related to Dietary surveillance counseling Dietary counseling Related to Di etary surveillance counseling Decrease caloric intake Related to Dietary surveillance counseling Dietary counseling Related to Di etary surveillance counseling Decrease caloric intake Related to Dietary surveillance counseling Dietary counseling Related to Di etary surveillance counseling Decrease caloric intake Related to Dietary surveillance counseling Assessments Type Assessment Date assessment Mixed hyperlipidemia assessment Pain in left shoulder 5 assessment Chronic pain syndrome 5 assessment Nevus, non-neoplastic 5 assessment Acute gastritis without bleeding Mental Status Date Cognitive Assessment Orientation - [place] ed to time, place, person, situation.
--- OUTSIDE RECORDS SUMMARY | 2024-07-16 17:59 | XMS_ITS | Clinical Summary ---
Author Organization [facility] Address [address] [place] [address] Care Team Providers Care Hospital Monitor Name Role Phone Imtiaz Coles MD Primary Care Provider [phone] Social History Tobacco Use Types Packs/Day Years Used Date Smoking Tobacco: Never Assessed Comments Unknown Sex and Gender Information Value Date Recorded Sex Assigned at Not on file Legal Sex Female 7:39 PM CDT Gender Identity Not on file Sexual Orientation Not on file Plan of Treatment Health Maintenance Due Date Last Done Comments Cervical Cancer Screening Pap Smear (Age 30 to 64) Every 3 Years 1973 Colorectal Cancer Screening Colonoscopy (10 Years) 1973 Annual Physical 01/21/1976 Hepatitis C 1991 DTaP, Tdap and Td Vaccines (1 - Tdap) 01/21/1992 Hepatitis B Vaccines (1 of 3 - 19+ 3-dose series) 01/21/1992 Cervical Cancer Screening Pap with HPV Testing (Age 30 to 64) Every 5 Years 2003 Cervical Cancer Screening with HPV 2003 Pneumococcal Vaccine: 50+ Years (1 of 1 - PCV) 2023 Zoster Vaccines (1 of 2) 2023 COVID-19 Vaccine ( - 2023- season) 2023 Mammogram Screening 11/18/2025 11/19/2023, 05/06/2022, 05/01/2020, Additional history exists Meningococcal B Vaccine Aged Out No l onger eligible based on patient's age to complete this topic Meningococcal Vaccine Aged Out No destiney romeo eligible based on patient's age to complete this topic RSV Immunizations Under 20 Months Aged Out No longer eligible based on patient's age to complete this topic Insurance [employer] Care Teams Hospital Monitor Relationship Specialty Start Date End Date Imtiaz Coles MD [address] [address] PCP - General FAMILY PRACTICE 02/06/24
--- OUTSIDE RECORDS SUMMARY | 2024-07-16 17:59 | XMS_ITS | Clinical Summary ---
Author Organization [facility] [employer] Address [address] [place] [address] Care Team Providers Care Wind Project Manager Name Role Phone Unknown, Provider Primary Care Provider Unavaila ble Source Comments [facility] [employer],non-owned Affiliates and Associated Physician Practices is amultiple site organization consisting of ambulatory clinics and hospital sitesin [place], [place], [place] and [place]. This disclosure is being madepursuant to the Care Everywhere program and may not contain all information available regarding this patient. 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 Gender Identity Not on file Sexual Orientation Not on file Plan of Treatment Health Maintenance Due Date Last Done Comments COLOGUARD (AGES 45-75) - COL ON CA SCREENING 1973 COLON MONITORING 1973 COLONOSCOPY - COLON CA SCREENING 1973 CT COLONOGRAPHY - COLON CA SCREENING 1973 Colorectal Cancer Screening 1973 FIT - COLON CA SCREENING 1973 FLEX SIG - COLON CA SCREENING 1973 LIPID TESTING 1973 MAMMOGRAM 1973 HIV SCREENING 01/21/1988 HEPATITIS C SCREENING 01/16/1991 DTAP/TDAP/TD VACCINES (1 - Tdap) 01/21/1992 HEPATITIS B VACCINE (1 of 3 - 19+ 3-dose series) 01/21/1992 PNEUMOCOCCAL VACCINE 50+ (1 of 1 - PCV) 2023 ZOSTER VACCINE (1 of 2) 2023 COVID-19 VACCINE (1 - 2023-2 5 season) 2023 DEPRESSION SCREENING 03/28/2024 INFLUENZA VACCINE (Season Ended) 2024 HIB VACCINE Aged Out No longer eligi ble based on patient's age to complete this topic HPV VACCINE Aged Out No longer eligi ble based on patient's age to complete this topic MENINGOCOCCAL (Group B) VACC INE SHARED DECISION-MAKING Aged Out No longer eligibl e based on patient's age to complete this topic MENINGOCOCCAL GROUPS A/C/Y/W VACCINE Aged Out No longer eligible b ased on patient's age to complete this topic Insurance [facility] MEDICAID - OUT OF STATE Care Teams Wind Project Manager Relationship Specialty Start Date End Date Unknown, Provider PCP - General 07/14/17
--- OUTSIDE RECORDS SUMMARY | 2024-07-16 17:59 | XMS_ITS | Referral Summary ---
Author Organization [facility] Address [address] [place] [address] Care Team Providers Care Tandem Mill Roller Name Role Phone Imtiaz Coles MD Primary Care Provider [phone] Allergies Active Allergy Reactions Criticality Noted Date [...] 01/23/2024 Active Problems No known active problems Social History Tobacco Use Types Packs/Day Years Used Date Smoking Tobacco: Former Alcohol Use Standard Drinks/Week Comments Not Currently 0 (1 standard drink = 0.6 oz pur e alcohol) Comments No Sex and Gender Information Value Date Recorded Sex Assigned at Not on file Legal Sex Female 12:47 AM [employer] Gender Identity Not on file Sexual Orientation [...] 01/23/2024 5:00 PM CDT Plan of Treatment Not on file Procedures Procedure Name Priority Date/Time Associated Diagnosis [...] Most Recently Relevant to Health Maintenance Insurance [facility] RISK [facility] Address: [address] [facility] ID[address] [facility] Care Teams Tandem Mill Roller Relationship Specialty Start Date End Date Imtiaz Coles MD PCP - General 01/08/10
--- OUTSIDE RECORDS SUMMARY | 2024-07-16 17:59 | XMS_ITS | Encounter Summary ---
Author Organization [facility] Address [address] [facility] [place] [address] Phone Care Team Providers Care Geological Drafter Name Role Phone Sanket Imtiaz Primary Care Provider [phone] Alan Moody DO Unavailable [phone] Reason for Referral * PT/OT/ST (Routine) - Closed Specialty Diagnoses / Procedures Referred By Kayla t Referred To Contact Physical Therapy Diagnoses Pain of left shoulder joint on movement Alan Reddy [address] [facility] [address] [place] [address] Phone: tel: fax: [facility] [address] [address] Phone: tel: fax: Referral ID Status Reason Start Date Expiration Date Visits Re quested Visits Authorized [id number] Closed 02/08/2024 50 24 Scheduling Instructions E MANAGEMENT SPECIALIST Encounter Details Date Type Department Care Team (Latest Contact Info) Description 02/08/2024 Transcribe Orders [facility] [address] [place] [address] [address] Red[address] PAC [address] [facility], [place]. [address] [place] [address] Pain of left shoulder joint on movement (Primary Dx) Social History Tobacco Use Types Packs/Day Years [...] on file Sexual Orientation Not on file documented as of this encounter Plan of Treatment Scheduled Referrals Name Type Priority Associated Diagnoses Orde r Schedule PHYSICAL THERAPY REFERRAL Outpatient Referral Routine Pain of left shoulder joint on movement Expected: 02/08/2024, Expires: 02/07/2025 documented as of this encounter Visit Diagnoses Diagnosis Pain of left shoulder joint on movement- Primary documented in this encounter Additional Health Concerns Assessment Noted Time PHQ-9 Depression Total Score: 0 12/23/19 19 11:38 AM CDT documented as of this encounter Care Teams Geological Drafter Relationship Specialty Start Date End Date Imtiaz Coles [address] [place] [address] PCP - General Family Medicine 08/09/16 Alan Moody DO [address] [place] [address] Consulting Physician Oncology 06/12/18 documented as of this encounter
== END ==
LOC: ANHLAB 16:48
PROVIDERS: PCP Emergency Medicine; Visit Provider Physician Assistant Surgical
DX: C44.319 Basal cell carcinoma of skin of other parts of face (principal); L30.8 Other specified dermatitis
CPT/HCPCS: 88305